=== PATIENT | male | born 1985 ===

== ENCOUNTER 2019-06-08 10:13 | Emergency (ER) | payer OTHER ==
[~2019-06-08] VITALS: Ht 172.7 cm; Wt 83.9 kg
== END 2019-06-08 12:57 | disposition home or self-care (01) ==
LOC: ER 10:13
DX: B34.8 Other viral infections of unspecified site (principal); B96.0 Mycoplasma pneumoniae [M. pneumoniae] as the cause of diseases classified elsewhere